=== PATIENT | female | born 1985 | race Hispanic/Latino ===

== ENCOUNTER 2017-09-13 17:35 | Emergency (ER) | payer MEDICAID, OTHER ==
[2017-09-13] MEDS ORDERED: Ibuprofen 800 MG TAB ONE (18:01)
--- NOTE | 2017-09-13 18:26 | RAD ---
LEFT ANKLE THREE VIEWS: HISTORY: Left ankle injury. TECHNIQUE: AP, lateral, and oblique views of the left ankle obtained. FINDINGS: Images demonstrate a small calcaneal bone spur. Three views of the left ankle demonstrate no evidence of left ankle fractures. IMPRESSION: No evidence of acute left ankle fractures or bony lesions. POS: [facility]
== END 2017-09-13 18:30 | disposition home or self-care (01) ==
LOC: MADERS 17:35
DX: S93.402A Sprain of unspecified ligament of left ankle, initial encounter (principal); X50.1XXA Overexertion from prolonged static or awkward postures, initial encounter